=== PATIENT | male | born 1975 | race Hispanic/Latino ===

== ENCOUNTER 2021-07-15 08:21 | Emergency (ER) | payer OTHER, SELFPAY ==
--- NOTE | ~2021-07-15 | CT_ITS ---
EXAMINATION: CT brain wo con INDICATION: Head injury COMPARISON: None TECHNIQUE: Standard unenhanced head CT. The dose-length product (DLP) was 605.33 mGy-cm. The mA was a djusted according to patient size. Iterative reconstruction technique was employed. FINDINGS: There is a laceration in hematoma in the right parietal scalp. There is no intracranial hem orrhage, acute infarction, or abnormal mass lesion. The ventricles are normal. There is no abnormal m ass effect or midline shift. The pat-white matter differentiation is normal. The basal cisterns are patent. The orbits are normal. There is mild mucosal thickening of the paranasal sinuses. IMPRESSION: 1. Right parietal scalp hematoma and laceration without acute intracranial abnormality. Reviewed, dictated and finalized at location A. OTOLARYNGOLOGY IMPRESSION: 1. Right parietal scalp hematoma and laceration without acute intracranial abno rmality.
[2021-07-15 08:54] VITALS: BP 131/92; PULSE 82; RESP 16; TEMP 36.1; O2SAT 97
--- NOTE | 2021-07-15 09:25 | ED.HEATRA ---
HPI - Head Injury General Chief complaint: Head Injury Stated complaint: head lac Time Seen by Provider: 07/15/21 09:14 Source: patient Mode of arrival: ambulatory Limitations: no limitations History of Present Illness HPI Narrative: This is a 46-year-old male that presents to the emergency department after head injury today with laceration. Reports a four foot level fell off of the top of the building they are building (about 15 feet). Reports it hit him in the back of the head. He did not lose consciousness. Reports a laceration to the area. Otherwise has no complaints. He is not up-to-date on tetanus. Denies vision changes, vomiting, numbness, or weakness. Review of Systems Review of Systems: CONSTITUTIONAL: Denies fever EYES: Denies visual changes GASTROINTESTINAL: Denies vomiting NEUROLOGIC: Denies headache, numbness, or weakness. All systems reviewed & are unremarkable except as noted in HPI and below PMFSH Past Medical History Medical History (Updated 07/15/21 @ 10:01 by Carol Abebe PA-C) No active medical problems Social History Social History (Updated 07/15/21 @ 09:27 by Carol Abebe PA-C) Smoking status: Current every day smoker Exam Narrative: GENERAL: Well-appearing, well-nourished, and in no acute distress. HEAD: Normocephalic. 3 cm linear laceration into subcutaneous tissue of the posterior scalp EYES: PERRLA and EOMI. ENT: Nares clear, no rhinorrhea or epistaxis. Mucous membranes moist. Oropharynx without tonsillar hypertrophy exudate or other lesions. Bilateral TMs pearly pat non-bulging NECK: Supple. No adenopathy or masses. CHEST: Clear to auscultation. No respiratory distress. No wheezes rales or rhonchi HEART: Regular rate and rhythm. No murmur heard. Normal peripheral pulses. EXTREMITIES: Normal range of motion. No edema. Strength equal in bilateral upper and lower extremities (5/5) SKIN: Warm, dry, no rash. NEURO: No focal deficits. Alert and oriented x3. Cranial nerves II through XII grossly intact PSYCH: Normal mood and affect Course Vital Signs Vital signs: Vital Signs Temperature 97 F L 07/15/21 08:54 Pulse Rate 82 07/15/21 08:54 Respiratory Rate 16 07/15/21 08:54 Blood Pressure 131/92 H 07/15/21 08:54 Pulse Oximetry 97 07/15/21 08:54 Temperature 97 F L 07/15/21 08:54 Pulse Rate 82 07/15/21 08:54 Respiratory Rate 16 07/15/21 08:54 Blood Pressure 131/92 H 07/15/21 08:54 Pulse Oximetry 97 07/15/21 08:54 Procedures Laceration Laceration 1: Date: 07/15/21 Time: 09:59 Site: scalp Size (cm): 3 Description: linear Depth: simple, single layer Local Anesthetic: lidocaine 1% and with epi Amount of anesthesia used (mL): 2 Pre-repair: wound explored and irrigated ====== Skin Level ====== Skin layer closed with: gopi Number of sutures: 5 ====== Subcutaneous Layer ====== ====== Muscle Layer ====== ====== Tendon Layer ====== MDM - Head Injury MDM Narrative Medical decision making narrative: Patient presents to the emergency department after head injury. A four foot level had fallen from the top of the building they are working on. Struck him in the head. No loss of consciousness. Denies vision changes, vomiting or numbness. Patient is neurologically intact. Sustained a scalp laceration. This was irrigated and closed with gopi. Patient was educated on wound care. CT scan of the brain is without acute intracranial abnormality. Patient was updated on case findings. He is stable and felt appropriate for further outpatient evaluation. He is to follow-up with his primary care doctor. He was given warnings to return to the ER Imaging Data Radiologist's impression: ITS Impressions Head CT 07/15/21 09:39 IMPRESSION: 1. Right parietal scalp hematoma and laceration without acute intracranial abnormality. Critical Care John
[2021-07-15] MEDS: TETANUS,DIPHTHERIA,AC PERTUSSIS ADULT (0.5 ML) BOOSTRIX IM (09:53)
== END 2021-07-15 10:25 | disposition home or self-care (01) ==
PROVIDERS: Emergency Provider Emergency Medicine
DX: S01.01XA Laceration without foreign body of scalp, initial encounter (principal); S09.90XA Unspecified injury of head, initial encounter; F17.210 Nicotine dependence, cigarettes, uncomplicated; Z23 Encounter for immunization; W17.89XA Other fall from one level to another, initial encounter
CPT/HCPCS: 12002; 70450; 90471; 90715; 99284